=== PATIENT | male | born 1955 | race Caucasian/White ===

== ENCOUNTER 2021-03-10 08:34 | Outpatient (CLI) | payer MEDICARE | END 2021-03-10 08:35 | disposition home or self-care (01) | LOC: RAD-FRANK 08:34 | PROVIDERS: ATTEND Nurse Practitioner Family | DX: R10.9 Unspecified abdominal pain (principal); R19.8 Other specified symptoms and signs involving the digestive system and abdomen | CPT/HCPCS: 74018 ==

== ENCOUNTER 2022-01-08 08:27 | Outpatient (CLI) | payer MEDICARE | END 2022-01-08 08:28 | disposition home or self-care (01) | LOC: RAD-FRANK 08:27 | PROVIDERS: ATTEND Nurse Practitioner Family | DX: M25.571 Pain in right ankle and joints of right foot (principal) ==

== ENCOUNTER 2023-02-09 09:30 | Outpatient (CLI) | payer OTHER | END 2023-02-09 09:31 | disposition home or self-care (01) | LOC: BICULT 09:30 | PROVIDERS: ATTEND Internal Medicine Gastroenterology | DX: K74.60 Unspecified cirrhosis of liver (principal); K80.20 Calculus of gallbladder without cholecystitis without obstruction; R16.1 Splenomegaly, not elsewhere classified | CPT/HCPCS: 76705 ==

== ENCOUNTER 2023-05-13 15:15 | Inpatient (IN) | payer OTHER ==
[2023-05-13 16:03] LABS: #Eosinphils 0.1 thou/uL (0.0-0.7); #Neutrophils 8.2 thou/uL (1.40-6.50); %Basophils 0.3 % (0.0-1.0); %Eosinophils 0.6 % (0.0-10.0); %Lymphocytes 8.4 % (21.0-51.0); %Monocytes 9.7 % (0.0-10.0); %Neutrophils 80.5 % (42.0-75.0); Hemoglobin 14.5 g/dL (14.0-18.0); Mean Corpuscular HGB CONC 34.5 g/dL (32.0-36.0); Mean Corpuscular Hemoglobin 32.9 pg (27.0-31.0); Mean Corpuscular Volume 95.2 fl (78.0-98.0); Mean Platelet Volume 9.5 fL (7.4-10.4); Platelet Count 151 10x3/uL (130-400); RBC Distribution Width 11.2 % (11.5-14.5); Red Blood Cell (RBC) Count 4.41 mill/uL (4.70-6.10); White Blood Cell (WBC) Count 10.2 10x3/uL (4.8-10.8)
[2023-05-13] MEDS ORDERED: Aspirin Chewable 81 MG TAB ONE (16:24)
[2023-05-13] MEDS ORDERED: Nitroglycerin 0.4 MG TAB 1 EACH ONE ×2 (16:24→16:54)
[2023-05-13 16:36] LABS: ALT (SGPT) 7 U/L (8-55); AST (SGOT) 27 U/L (5-34); Albumin 4.3 g/dL (3.4-4.8); Alkaline Phosphatase 50 U/L (40-110); Anion Gap 11 mmol/L (10-20); BUN (Urea Nitrogen) 21 mg/dL (8.4-25.7); Bilirubin, Total 1.4 mg/dL (0.2-1.2); Calc. Creatinine Clearance 0 mL/min (70-130); Calcium 9.2 mg/dL (7.8-10.44); Carbon Dioxide 29 mmol/L (23-31); Chloride 98 mmol/L (98-107); Estimated GFR 73; Globulin 4.3 g/dL (2.4-3.5); Glucose 115 mg/dL (80-115); Lipase 27 U/L (8-78); Potassium 3.7 mmol/L (3.5-5.1); Protein, Total 8.6 g/dL (5.8-8.1); Sodium 134 mmol/L (136-145)
[2023-05-13 16:39] LABS: Troponin I Less than 0.010 ng/mL (< 0.028)
[2023-05-13] MEDS ORDERED: Heparin 5,000 UNITS/ML VIAL ONE (17:50)
[2023-05-13] MEDS ORDERED: Morphine 4 MG/ML VIAL ONE (17:50)
[2023-05-13] MEDS ORDERED: Heparin 25,000 units/D5W 500 ML ONE (17:50)
[2023-05-13] MEDS ORDERED: Ondansetron ODT 4 MG TAB PO PRN (17:52)
[2023-05-13] MEDS ORDERED: Acetaminophen 325 MG TAB PO PRN ×2 (17:52→20:56)
[2023-05-13] MEDS ORDERED: Ondansetron PF 4 MG/2 ML Vial IVP PRN (17:52)
[2023-05-13] MEDS ORDERED: Heparin 25,000 units/D5W 500 ML IVPB SCH (18:15)
[2023-05-13 18:30] LABS: Hematocrit 39.7 % (42.0-52.0); Hemoglobin 13.5 g/dL (14.0-18.0); Platelet Count 140 10x3/uL (130-400)
[2023-05-13 19:02] LABS: Troponin I Less than 0.010 ng/mL (< 0.028)
[2023-05-13 19:48] VITALS: BMI 25.0
[2023-05-13] MEDS: Nitroglycerin 0.4 MG TAB (25 Tab Bottle) SL PRN ×2 (20:50→21:10)
[2023-05-13] MEDS ORDERED: Morphine 4 MG/ML VIAL SLOW IVP PRN (21:00)
[2023-05-13] MEDS ORDERED: Nitroglycerin 2% Ointment 1 INCH/1 GM Packet TOP PRN (21:19)
[2023-05-13] MEDS: Morphine 4 MG/ML VIAL SLOW IVP PRN (21:35)
[2023-05-13 22:23] LABS: Troponin I Less than 0.010 ng/mL (< 0.028)
[2023-05-13] MEDS ORDERED: Heparin 10,000 UNITS/ 10 ML VIAL SLOW IVP SCH (23:00)
[2023-05-14] MEDS ORDERED: fentaNYL 50 mcg/mL 1 mL Vial SLOW IVP SCH (00:45)
[2023-05-14 04:03] LABS: #Basophils 0.1 thou/uL (0.0-0.2); #Monocytes 1.5 thou/uL (0.11-0.59); #Neutrophils 10.5 thou/uL (1.40-6.50); %Basophils 0.4 % (0.0-1.0); %Eosinophils 0.1 % (0.0-10.0); %Lymphocytes 8.2 % (21.0-51.0); %Monocytes 11.3 % (0.0-10.0); %Neutrophils 79.7 % (42.0-75.0); Hematocrit 40.6 % (42.0-52.0); Hemoglobin 13.7 g/dL (14.0-18.0); Mean Corpuscular HGB CONC 33.7 g/dL (32.0-36.0); Mean Corpuscular Hemoglobin 32.3 pg (27.0-31.0); Mean Corpuscular Volume 95.8 fl (78.0-98.0); Mean Platelet Volume 9.6 fL (7.4-10.4); Platelet Count 149 10x3/uL (130-400); RBC Distribution Width 11.3 % (11.5-14.5); Red Blood Cell (RBC) Count 4.24 mill/uL (4.70-6.10); White Blood Cell (WBC) Count 13.2 10x3/uL (4.8-10.8)
[2023-05-14 04:35] LABS: ALT (SGPT) 7 U/L (8-55); AST (SGOT) 23 U/L (5-34); Alkaline Phosphatase 38 U/L (40-110); Anion Gap 11 mmol/L (10-20); BUN (Urea Nitrogen) 18 mg/dL (8.4-25.7); Bilirubin, Total 2.2 mg/dL (0.2-1.2); Calc. Creatinine Clearance 74 mL/min (70-130); Calcium 9.1 mg/dL (7.8-10.44); Carbon Dioxide 28 mmol/L (23-31); Cardiac Risk 2.8 (Less than 4.5); Chloride 97 mmol/L (98-107); Cholesterol 189 mg/dl (< 200 Desired); Estimated GFR 71; Globulin 4.1 g/dL (2.4-3.5); Glucose 125 mg/dL (80-115); HDL Cholesterol 68 mg/dL (>60 Neg Risk); LDL Cholesterol, Calculated 111 mg/dL; Potassium 3.6 mmol/L (3.5-5.1); Protein, Total 8.1 g/dL (5.8-8.1); Sodium 132 mmol/L (136-145); Triglycerides 50 mg/dL (Less than 150)
[2023-05-14] MEDS: Morphine 4 MG/ML VIAL SLOW IVP PRN ×3 (08:58→21:32)
[2023-05-14] MEDS: Aspirin Chewable 81 MG TAB PO SCH (08:58)
[2023-05-14] MEDS: Nitroglycerin 0.4 MG TAB (25 Tab Bottle) SL PRN (08:58)
[2023-05-14] MEDS ORDERED: Colchicine 0.6 MG TAB PO SCH (10:15)
[2023-05-14] MEDS: Colchicine 0.6 MG TAB PO SCH (20:10)
[2023-05-14] MEDS ORDERED: Metoprolol Tartrate 5 MG/5 ML VIAL ONE (23:25)
[2023-05-14 23:45] LABS: Anion Gap 14 mmol/L (10-20); BUN (Urea Nitrogen) 17 mg/dL (8.4-25.7); Calc. Creatinine Clearance 81 mL/min (70-130); Calcium 9.1 mg/dL (7.8-10.44); Carbon Dioxide 25 mmol/L (23-31); Chloride 96 mmol/L (98-107); Estimated GFR 80; Glucose 120 mg/dL (80-115); Potassium 3.8 mmol/L (3.5-5.1); Sodium 131 mmol/L (136-145)
[2023-05-14] MEDS ORDERED: Metoprolol Tartrate 5 MG/5 ML VIAL IVP SCH (23:45)
[2023-05-15 05:31] LABS: #Eosinphils 0.1 thou/uL (0.0-0.7); #Monocytes 1.2 thou/uL (0.11-0.59); #Neutrophils 8.9 thou/uL (1.40-6.50); %Basophils 0.3 % (0.0-1.0); %Eosinophils 0.5 % (0.0-10.0); %Lymphocytes 10.1 % (21.0-51.0); %Monocytes 10.2 % (0.0-10.0); %Neutrophils 78.5 % (42.0-75.0); Hemoglobin 14.2 g/dL (14.0-18.0); Mean Corpuscular HGB CONC 33.8 g/dL (32.0-36.0); Mean Corpuscular Hemoglobin 32.6 pg (27.0-31.0); Mean Corpuscular Volume 96.3 fl (78.0-98.0); Mean Platelet Volume 10.4 fL (7.4-10.4); Platelet Count 164 10x3/uL (130-400); RBC Distribution Width 11.2 % (11.5-14.5); Red Blood Cell (RBC) Count 4.36 mill/uL (4.70-6.10); White Blood Cell (WBC) Count 11.3 10x3/uL (4.8-10.8)
[2023-05-15 06:03] LABS: Anion Gap 12 mmol/L (10-20); BUN (Urea Nitrogen) 19 mg/dL (8.4-25.7); Calc. Creatinine Clearance 80 mL/min (70-130); Carbon Dioxide 28 mmol/L (23-31); Chloride 97 mmol/L (98-107); Estimated GFR 81; Glucose 141 mg/dL (80-115); Potassium 3.8 mmol/L (3.5-5.1); Sodium 133 mmol/L (136-145)
[2023-05-15] MEDS: Colchicine 0.6 MG TAB PO SCH (09:23)
[2023-05-15] MEDS: Aspirin Chewable 81 MG TAB PO SCH (09:23)
[2023-05-15] MEDS: Dronedarone HCl 400 MG TAB PO SCH ×2 (09:23→16:58)
[2023-05-15] MEDS ORDERED: Regadenoson 0.4 MG/5 ML SYRINGE ONE (09:46)
[2023-05-15] MEDS ORDERED: Magnesium Citrate 300 ML BOT PO SCH (15:30)
[2023-05-15 16:00] VITALS: BP 160/72; TEMP 97.8
[2023-05-16] MEDS ORDERED: Apixaban 5 MG TAB PO SCH (09:00)
== END 2023-05-15 18:31 | disposition home or self-care (01) | DRG 315 ==
LOC: ERS 15:15 → 2SW 17:46 → OBSVTOIN 05-15 09:40
PROVIDERS: ADMIT Hospitalist; ATTEND Internal Medicine
DX: I30.9 Acute pericarditis, unspecified (principal); E87.1 Hypo-osmolality and hyponatremia; I20.0 Unstable angina; I48.0 Paroxysmal atrial fibrillation; I44.7 Left bundle-branch block, unspecified; Z66 Do not resuscitate; Z98.890 Other specified postprocedural states; Z79.899 Other long term (current) drug therapy; K74.60 Unspecified cirrhosis of liver; Z79.82 Long term (current) use of aspirin; Z87.891 Personal history of nicotine dependence
CPT/HCPCS: 36415; 71045; 78452; 80048; 80053; 80061; 83690; 83735; 84443; 84484; 85025; 85730; 86140; 93005; 93010; 93017; 93306; 96365; 96374; 96375; 96376; A9502; G0378; J1644; J2270; J2785; J3010; Q0162